=== PATIENT | male | born 1960 | race Caucasian/White ===

== ENCOUNTER 2021-08-08 21:29 | Emergency (ER) | payer OTHER ==
[~2021-08-08] VITALS: Ht 177.8 cm; Wt 73.0 kg
[2021-08-09] MEDS ORDERED: IBUPROFEN 600MG TABLET PO ONE (02:00)
[2021-08-09 03:30] LABS: CLARITY URINE TURBID (CLEAR); COLOR URINE YELLOW (YELLOW); KETONES URINE NEGATIVE (NEGATIVE); LEUKOCYTE ESTERASE URINE 3+ (NEGATIVE); NITRITE URINE NEGATIVE (NEGATIVE); OCCULT BLOOD URINE 2+ (NEGATIVE); PROTEIN URINE 2+ (NEGATIVE); SPECIFIC GRAVITY URINE 1.015 (1.005-1.030)
[2021-08-09] MEDS ORDERED: CEPHALEXIN 250MG CAPSULE PO ONE (03:30)
[2021-08-09 04:00] VITALS: BP 103/73
[2021-08-09] MEDS ORDERED: CEPH500T MT (04:34)
== END 2021-08-09 08:19 | disposition home or self-care (01) ==
LOC: ER 21:29
DX: T83.018A Breakdown (mechanical) of other urinary catheter, initial encounter (principal); Y84.6 Urinary catheterization as the cause of abnormal reaction of the patient, or of later complication, without mention of misadventure at the time of the procedure; Y92.9 Unspecified place or not applicable; R30.0 Dysuria
CPT/HCPCS: 51702; 81001; 84703; 87077; 87186; 99283; 99284